=== PATIENT | male | born 1955 | race Two or more races ===

== ENCOUNTER 2024-09-27 14:12 | Emergency (ER) | payer SELFPAY ==
[~2024-09-27] VITALS: Ht 162.6 cm; Wt 80.0 kg
[2024-09-27 14:26] VITALS: BP 142/103; RESP 20; O2SAT 100
[2024-09-27 14:35] LABS: Basophils # (auto) 0 10 ^3/uL (0-0.2); Basophils % (auto) 0.7 % (0.0-2.0); Eosinophils # (auto) 0.1 10 ^3/uL (0-0.8); Eosinophils % (auto) 0.8 % (0.0-7.0); Hemoglobin 17.7 g/dL (13.5-17.5); Lymphocytes # (auto) 1.6 10 ^3/uL (0.4-5.4); Lymphocytes % (auto) 22.8 % (10.0-50.0); Mean Corpuscular Hemoglobin 30.9 pg (28.0-32.0); Monocytes # (auto) 0.4 10 ^3/uL (0-1.3); Monocytes % (auto) 5.4 % (0.0-12.0); Neutrophils % (auto) 70.3 % (37.0-80.0); Nucleated Red Blood Cells % 0.1 %; Platelet Count (auto) 245 10^3/uL (140-450); Red Blood Cells 5.71 10^6/uL (4.5-5.90); Red Cell Distribution Width 13.3 % (11.8-14.3); White Blood Cell 7.2 10^3/uL (4.4-10.8)
[2024-09-27 14:58] LABS: Alanine Aminotransferase 33 U/L (7-40); Anion Gap 9 (5-15); Aspartate Aminotransferase 20 U/L (13-40); BUN/Creatinine Ratio 16.8 (10.0-20.0); Bilirubin, Total 0.7 mg/dL (0.2-1.0); Blood Urea Nitrogen 19 mg/dL (9-23); Carbon Dioxide 30 mmol/L (20-31); Potassium 4.6 mmol/L (3.5-5.1); Total Protein 7.7 g/dL (5.7-8.2)
[2024-09-27 14:59] LABS: Albumin 4.9 g/dL (3.2-4.8); Alkaline Phosphatase 159 U/L (46-116); Calcium 10.6 mg/dL (8.7-10.4); Chloride 96 mmol/L (98-107); Sodium 135 mmol/L (136-145)
[2024-09-27 15:01] LABS: Glucose 445 mg/dL (74-106)
[2024-09-27] MEDS ORDERED: SODIUM CHLORIDE 0.9% 1,000 ML IV ONE (15:15)
--- NOTE | 2024-09-27 15:49 | ED.PDOC ---
HPI Comments 69M presents to the Er w/ prior Hx of HTN, MA and Stentx3 which all may be associated to the c/c of CP. Pt reports that the CP started last night and the pain is pressure like-constant and no radiating. PMHx of DM. Denies chills, fever, N/V/D, SOB, or other associated symptom's, modifiers, or recent injuries or sick contact at this time. Chief Complaint: Chest Pain Time Seen by MD: 15:30 Reviewed Notes: Nurses Notes, Medications, Allergies Allergies: Coded Allergies: NO KNOWN ALLERGIES (Unverified , 09/27/24) Home Meds Active Scripts Ibuprofen (Ibuprofen) 600 Mg Tab, 1 TAB PO TID for 10 Days, #30 TAB Prov:CARLEY GAYTAN MD 09/27/24 Doxycycline Hyclate (Vibramycin) 100 Mg Cap, 1 CAP PO BID, #20 CAP Prov:CARLEY GAYTAN MD 09/27/24 Information Source: Patient Mode of Arrival: Ambulatory Severity: Moderate Timing: Hours Duration: Since onset, Hours Prehospital treatment: None Location: Substernal Radiation: No Radiation Quality: Pressure Onset: At Rest Cardiac Risk Factors: None PE Risk Factors: None History of: MA Past Medical History PAST MEDICAL HISTORY: DM, HTN, MA Surgical History (Other): Stent x3 Family History Family History: Reviewed,noncontributory to illness, Unknown Social History Smoker: Non-Smoker Alcohol: Denies ETOH Use Drugs: Denies Drug Use Lives In: Home Constitutional: denies: chills, diaphoresis, fatigue, fever, malaise, sweats, weakness, others EENTM: denies: blurred vision, double vision, ear bleeding, ear discharge, ear drainage, ear pain, ear ringing, eye pain, eye redness, hearing loss, mouth pain, mouth swelling, nasal discharge, nose bleeding, nose congestion, nose pain, photophobia, tearing, throat pain, throat swelling, voice changes, others Respiratory: denies: cough, hemoptysis, orthopnea, SOB at rest, shortness of breath, SOB with excertion, stridor, wheezing, others Cardiovascular: reports: chest pain; denies: dizzy spells, diaphoresis, Dyspnea on exertion, edema, irregular heart beat, left arm pain, lightheadedness, palpitations, PND, syncope, others Gastrointestinal: denies: abdomen distended, abdominal pain, blood streaked bowels, constipated, diarrhea, dysphagia, difficulty swallowing, hematemesis, melena, nausea, poor appetite, poor fluid intake, rectal bleeding, rectal pain, vomiting, others Genitourinary: denies: burning, dysuria, flank pain, frequency, hematuria, incontinence, penile discharge, penile sore, pain, testicle pain, testicle swelling, urgency, others Neurological: denies: dizziness, fainting, headache, left sided numbness, left sided weakness, numbness, paresthesia, pre-existing deficit, right sided numbness, right sided weakness, seizure, speech problems, tingling, tremors, weakness, others Musculoskeletal: denies: back pain, gout, joint pain, joint swelling, muscle pain, muscle stiffness, neck pain, others Integumetry: denies: bruises, change in color, change in hair/nails, dryness, laceration, lesions, lumps, rash, wounds, others Allergic/Immunocompromised: denies: Difficulty Healing, Frequent Infections, Hives, Itching, others Hematologic/Lymphatic: denies: anemia, blood clots, easy bleeding, easy bruising, swollen glands, others Endocrine: denies: excessive hunger, excessive sweating, excessive thirst, excessive urination, flushing, intolerance to cold, intolerance to heat, unexplained weight gain, unexplained weight loss, others Psychiatric: denies: anxiety, bipolar disorder, depression, hopeless, panic disorder, schizophrenia, sleepless, suicidal, others All Other Systems: Reviewed and Negative Physical Exam General Appearance: Mild Distress, No Apparent Distress, Normal HEENT: Normal ENT Inspection, PERRL/EOMI, Pharynx Normal, TMs Normal Neck: Full Range of Motion, Non-Tender, Normal, Normal Inspection Respiratory: Chest Non-Tender, Lungs Clear, No Accessory Muscle Use, No Respiratory Distress, Normal Breath Sounds Cardiovascular: No Edema, No JVD, No Murmur, No Gallop, Normal Peripheral Pulses, Regular Rate/Rhythm Breast Exam: Deferred Gastrointestinal: No Organomegaly, Non Tender, No Pulsatile Mass, Normal Bowel Sounds, Soft Genitalia: Deferred Pelvic: Deferred Rectal: Deferred Extremities: No calf tenderness, Normal capillary refill, Normal inspection, Normal range of motion, Non-tender, No pedal edema Musculoskeletal : Apperance: Normal Neurologic: Alert, customer agent II-XII nml as Tested, No Motor Deficits, Normal Affect, Normal Mood, No Sensory Deficits Cerebellar Function: Normal Reflexes: Normal Skin: Dry, Normal Color, Warm Peripheral Pulses: 1+ carotid (R), 1+ carotid (L) Lymphatic: No Adenopathy EKG EKG : Pulse Rate (adult): 80 [place]: Normal Cardiac Rhythm: NSR Was a procedure done? Was a procedure done?: No CP Differential Dx Differential Diagnosis: Angina, Anxiety / Panic Attack, Electrolyte Disorder, Heart Failure, MA Differential Diagnosis: HTN Essential Differential Diagnosis: Angina, Chest Wall Pain, Costochondritis, Esophageal reflux/spasm, Myocardial Infarction, Pneumonia X-Ray, Labs, Meds, VS Vital Signs Date Time Temp Pulse Resp B/P (MAP) Pulse Ox O2 Delivery O2 Flow Rate FiO2 09/27/24 15:56 80 09/27/24 15:16 73 09/27/24 14:26 98.0 81 20 142/103 (116) 100 09/27/24 14:16 80 Lab Test 09/27/24 15:22 09/27/24 14:18 Range/Units Troponin I High Sensitivity 11 11 </=54 ng/L White Blood Count 7.2 4.4-10.8 10^3/uL Red Blood Count 5.71 4.5-5.90 10^6/uL Hemoglobin 17.7 H 13.5-17.5 g/dL Hematocrit 52.0 41.0-53.0 % Mean Corpuscular Volume 91.0 80.0-100.0 fL Mean Corpuscular Hemoglobin 30.9 28.0-32.0 pg Mean Corpuscular Hemoglobin Concent 34.0 32.0-36.0 g/dL Red Cell Distribution Width 13.3 11.8-14.3 % Platelet Count 245 140-450 10^3/uL Mean Platelet Volume 9.2 6.9-10.8 fL Neutrophils (%) (Auto) 70.3 37.0-80.0 % Lymphocytes (%) (Auto) 22.8 10.0-50.0 % Monocytes (%) (Auto) 5.4 0.0-12.0 % Eosinophils (%) (Auto) 0.8 0.0-7.0 % Basophils (%) (Auto) 0.7 0.0-2.0 % Neutrophils # (Auto) 5.0 1.6-8.6 10 ^3/uL Lymphocytes # (Auto) 1.6 0.4-5.4 10 ^3/uL Monocytes # (Auto) 0.4 0-1.3 10 ^3/uL Eosinophils # (Auto) 0.1 0-0.8 10 ^3/uL Basophils # (Auto) 0 0-0.2 10 ^3/uL Nucleated Red Blood Cells 0.1 % Sodium Level 135 L 136-145 mmol/L Potassium Level 4.6 3.5-5.1 mmol/L Chloride Level 96 L 98-107 mmol/L Carbon Dioxide Level 30 20-31 mmol/L Anion Gap 9 5-15 Blood Urea Nitrogen 19 9-23 mg/dL Creatinine 1.13 0.700-1.30 mg/dL Glomerular Filtration Rate Calc 70 >90 mL/min BUN/Creatinine Ratio 16.8 10.0-20.0 Serum Glucose 445 *H 74-106 mg/dL Calcium Level 10.6 H 8.7-10.4 mg/dL Magnesium Level 1.9 1.6-2.6 mg/dL Total Bilirubin 0.7 0.2-1.0 mg/dL Aspartate Amino Transferase (AST) 20 13-40 U/L Alanine Aminotransferase (ALT) 33 7-40 U/L Alkaline Phosphatase 159 H 46-116 U/L Total Protein 7.7 5.7-8.2 g/dL Albumin 4.9 H 3.2-4.8 g/dL Current Medications Medications (Trade) Dose Ordered Sig/Cassie Route Start Time Stop Time Status Last Admin Aspirin (Ecotrin Enteric Coated Tablet) 162 mg ONCE ONCE PO 09/27/24 15:45 09/27/24 15:46 DC 09/27/24 15:58 X-Ray, Labs, Meds, VS Comment Course in the emergency department eventful patient came in complaining of chest pain sudden onset this morning of after your that his sister was in ICU Blood pressure 142/103 and a blood sugar is 445 patient did not take his insulin this morning Patient has a history of hypertension myocardial infarction and diabetes and he had stents in 2023 he takes Plavix for that Chest x-ray shows right lower lobe pneumonia EKG shows normal sinus rhythm at 80 and a 2nd EKG shows normal sinus rhythm at 79 CBC normal CMP blood sugar 445 Troponin 11 and 11 Magnesium 1.9 Patient left without waiting for his prescription His prescription is sent to [facility] Time of 1ST Reevaluation: 16:00 Reevaluation 1ST: Unchanged Patient Education/Counseling: Diagnosis, Treatment, Prognosis Family Education/Counseling: No Family Present Departure 1 Departure Time of Disposition: 17:46 Impression: Primary Impression: Situational anxiety Additional Impressions: Chest pain due to CAD Uncontrolled hypertension Uncontrolled diabetes mellitus Qualified Codes: E11.65 - Type 2 diabetes mellitus with hyperglycemia Stented coronary artery Right lower lobe pneumonia Qualified Codes: J18.9 - Pneumonia, unspecified organism Disposition: LEFT AGAINST MEDICAL ADVICE Condition: Serious Additional Instructions: Push fluids use same management but you need to follow up with your PCP Your prescription noted pharmacy e-Prescriptions Ibuprofen (Ibuprofen) 600 Mg Tab 1 TAB PO TID for 10 Days, #30 TAB Prov: CARLEY GAYTAN MD 09/27/24 Doxycycline Hyclate (Vibramycin) 100 Mg Cap 1 CAP PO BID, #20 CAP Prov: CARLEY GAYTAN MD 09/27/24 Discharged With: Self Critical Care Note Critical Care Time?: No Stability Stability form required: No Heart Score Heart Score: Heart Score Response (Comments) Value History Slightly Suspicious 0 EKG Normal 0 Age >65 2 Risk Factors >3 or Hx ASHD 2 Troponin Normal limit 0 Total 4 I personally scribed for CARLEY GAYTAN MD ([email or web address]) on 09/27/24 at 15:49. Electronically submitted by Manuel Farris ([email or web address]). CARLEY GAYTAN MD Sep 27, 2024 15:49
[2024-09-27 15:56] VITALS: PULSE 80
--- NOTE | 2024-09-27 15:56 | DVH ---
CHEST RADIOGRAPH Indication: cp Technique: Frontal and lateral view of the chest was obtained Comparison: None FINDINGS: Lines and Tubes: None Lungs: Right lower lobe atelectasis. Pleura: Right lower lung pleural calcifications. No pneumothorax. Cardiomediastinal contours: Unremarkable Bones: Unremarkable IMPRESSION: Right lower lobe atelectasis.
[2024-09-27] MEDS: ASPirin-EC 81 mg tab PO ONE (15:58)
[2024-09-27] MEDS ORDERED: INSULIN LISPRO (HUMAN) 100 UNITS/ML ML SC ONE (17:00)
[2024-09-27] MEDS ORDERED: IBUP-1454 PO (17:45)
[2024-09-27] MEDS ORDERED: DOXY100C PO (17:45)
--- NOTE | 2024-09-28 06:56 | ECG ---
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
--- NOTE | 2024-09-29 08:15 | ECG ---
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
== END 2024-09-27 18:35 | disposition left against medical advice (07) ==
LOC: ER 14:12
DX: F41.9 Anxiety disorder, unspecified (principal); I25.10 Atherosclerotic heart disease of native coronary artery without angina pectoris; I10 Essential (primary) hypertension; E11.65 Type 2 diabetes mellitus with hyperglycemia; J18.9 Pneumonia, unspecified organism; I25.2 Old myocardial infarction; Z95.5 Presence of coronary angioplasty implant and graft
CPT/HCPCS: 36415; 71046; 80053; 83735; 84484; 85025; 93005